=== PATIENT | male | born 1995 | race Caucasian/White ===

== ENCOUNTER 2021-06-08 14:38 | Emergency (ER) | payer SELFPAY ==
[2021-06-08 14:42] VITALS: BP 129/75; PULSE 91; RESP 16; TEMP 36.7; O2SAT 99
[2021-06-08 17:49] VITALS: BP 130/82; PULSE 90; RESP 16; TEMP 36.7; O2SAT 98
--- NOTE | 2021-06-08 17:54 | PC.NURSE ---
accucheck for c/o feeling hypoglycemic. accucheck 84
[2021-06-08 17:56] LABS: Glucose Point of Care 83 mg/dl (65-105)
--- NOTE | 2021-06-08 18:21 | PC.NURSE ---
1821 pt at intake desk stating,I'm going to find a different hospital
== END 2021-06-09 02:25 | disposition left against medical advice (07) ==
LOC: ANHED 18:28
PROVIDERS: Emergency Provider Emergency Medicine
DX: R10.9 Unspecified abdominal pain (principal); Z53.21 Procedure and treatment not carried out due to patient leaving prior to being seen by health care provider
CPT/HCPCS: 82948; 99199